=== PATIENT | female | born 1970 | race American Indian/Alaskan Native ===

== ENCOUNTER 2019-01-23 08:56 | Emergency (ER) | payer OTHER ==
[2019-01-23 09:10] VITALS: BP 152/85
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
== END 2019-01-23 10:57 | disposition home or self-care (01) ==
LOC: ED 08:56
DX: S39.012A Strain of muscle, fascia and tendon of lower back, initial encounter (principal); S16.1XXA Strain of muscle, fascia and tendon at neck level, initial encounter; Z79.899 Other long term (current) drug therapy; V89.2XXA Person injured in unspecified motor-vehicle accident, traffic, initial encounter; Y93.89 Activity, other specified; Y92.410 Unspecified street and highway as the place of occurrence of the external cause; Y99.8 Other external cause status
CPT/HCPCS: 72100

== ENCOUNTER 2019-04-06 21:23 | Emergency (ER) | payer SELFPAY ==
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
[2019-04-06] MEDS ORDERED: cloNIDine 0.1 MG TAB PO ONE (23:57)
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
--- NOTE | 2019-04-07 00:28 | Cat Scan Report ---
CT HEAD WITHOUT CONTRAST INDICATION: HEADACHE TECHNIQUE: Axial slices were obtained through the head. Coronal and sagittal reformatted images were obtained. COMPARISON: None available. FINDINGS: There is no intracranial hemorrhage or extra-axial fluid collection. Ventricles, basilar cisterns, an d sulci appear within normal limits for age. There is no mass lesion or midline shift. No acute diaz torial infarct is identified. Bone windows demonstrate no acute osseous abnormality. Paranasal sinuses and mastoid air cells appear clear. TECHNIQUE: All CT scans at this facility use dose modulation, iterative reconstruction, automated ex posure control, weight based dosing, when appropriate, to reduce radiation dose to as low as reasonab ly achievable. IMPRESSION: 1. No acute intracranial abnormality. Signer Name: Marcel Martínez MD Signed: 04/07/2019 12:23 AM Workstation Name: [id number]
[2019-04-07 01:04] LABS: Calcium 9.4 mg/dL (8.4-10.2)
[2019-04-07 01:19] LABS: Basophils # (Auto) 0.1 K/mm3 (0.0-0.1); Basophils % (Auto) 1.1 % (0.0-1.8); Eosinophils # (Auto) 0.3 K/mm3 (0.0-0.4); Eosinophils % (Auto) 4.4 % (0.0-4.3); Hematocrit 37.7 % (30.3-42.9); Hemoglobin 12.2 gm/dl (10.1-14.3); Lymphocytes # (Auto) 1.8 K/mm3 (1.2-5.4); Lymphocytes % (Auto) 29.1 % (13.4-35.0); Mean Corpuscular HGB Conc 33 % (30-34); Mean Corpuscular Volume 82 fl (79-97); Monocytes # (Auto) 0.6 K/mm3 (0.0-0.8); Monocytes % (Auto) 9.7 % (0.0-7.3); Platelet Count 217 K/mm3 (140-440); Red Blood Count 4.59 M/mm3 (3.65-5.03); Red Cell Distribution Width 14.8 % (13.2-15.2)
[2019-04-07 01:54] VITALS: BP 141/75
== END 2019-04-07 01:54 | disposition home or self-care (01) ==
LOC: ED 21:23
DX: R51 Headache (principal)
CPT/HCPCS: 36415; 70450; 80048; 85025